=== PATIENT | male | born 1980 | race Two or more races ===

== ENCOUNTER 2024-04-05 22:41 | Observation (INO) | payer MEDICAID, SELFPAY ==
--- NOTE | 2024-04-05 22:47 | EDNOTE_ITS ---
Neuro Symptoms Deficit-RME/HPI General Chief Complaint: Neuro Symptoms/Deficit Stated Complaint: PAIN AND NUMBNESS TO RIGHT LEFT ARM AND LEG Time Seen by Provider: 04/05/24 22:47 Arrival date/time: 04/05/24 22:41 RME / HPI RME / HPI Narrative: This section includes all my notes and documentations, including HPI, PE, and ED course. Hector Nixon MD HPI: 44yo male with no significant past medical history presents to the ED for complaints of numbness to his arms and legs ~2130, 1 -2 hours ago. Patient reports also having pain to left his arm and leg, a headache, and left-sided facial numbness. He denies any history of similar symptoms. No speech or visual impairment. No loss of power in the arms or legs. No other complaints. ROS: All negative except as documented in HPI. Physical Exam: General: Alert and oriented. No acute distress when remaining still. Eyes: Conjunctivae and lids clear. PERRL. EOMI. ENT: No nasal congestion. Neck: Supple. Heart: RRR. Lungs: No respiratory distress. Good air movement. No rhonchi, wheezing, rales. Abdomen: Soft and nontender. Legs: No clubbing, cyanosis, edema. Skin: Warm and dry. Neuro: Alert and oriented X 3. Cranial nerves II to XII grossly normal. No p eripheral motor deficits. I reviewed all diagnostic test results. My interpretation of the EKG is sinus rhythm with no acute ST?T changes. My review of the head CT report is no acute findings. My review of the head/neck CTA report is no acute findings. Blood tests unremarkable. At this point, diagnoses include left sided numbness. Treatment here included ASA 325 mg. Patient remained stable. I discussed the case with our telehealth neurologist and hospitalist. About the presentation and exam and diagnostics and treatments here. And need of further care in the hospital. Will accept the patient. Hector Nixon MD Related Data Previous Rx's ?Medication ?Instructions ?Recorded hydrocodone 7.5 mg-acetaminophen 1 tab PO QID PRN pain #12 tabs 06/23/19 325 mg tablet cefuroxime axetil 500 mg tablet 500 mg PO Q12H #14 tab s 04/04/20 phenazopyridine 200 mg tablet 200 mg PO TID 6 doses #6 tabs 04/04/20 (Pyridium) Allergies Allergy/AdvReac Type Severity Reaction Status Date / Time No Known Allergies Allergy Verified 06/23/19 13:16 Review of Systems Review of Systems Systems Reviewed: All systems reviewed, normal except as documented Past Medical History Past Medical History NEUROLOGIC: Negative Neurological Disorders or Seizures CARDIAC: Negative Cardiac Disorders or Congestive Heart Failure RESPIRATORY: Negative Chronic Obstructive Pulmonary Disease (COPD) GASTROINTESTINAL: Negative Gastrointestinal Disorders GENITOURINARY: Negative Renal Disease MUSCULOSKELETAL: Negative Musculoskeletal Disorders ENDOCRINE: Negative Endocrine Disorders, Diabetes Mellitus Type 1 or Diabetes Mellitus Type 2 HEMATOLOGIC: Negative Blood Disorders OTHER HISTORY: Negative Autoimmune Disease, Blood Transfusions, Blood Transfusion Reaction or Anesthesia Reactions Surgical History SURGICAL: Positive Tonsillectomy Social History SMOKING STATUS: Current some day smoker ED Exam Narrative Physical exam: As noted in HPI. Course Quality Measures none Orders Category Date Time Status Admit to Inpatient Status Routine Admission 04/06/24 00:35 Active Patient Condition Routine Admission 04/06/24 00:35 Ordered Aspiration precautions NOW Care 04/06/24 00:36 Active Bedside Blood Glucose NOW Care 04/05/24 22:48 Active COVID-19 Screening Questionnaire NOW Care 04/06/24 00:00 Active Dark Room Attendant NOW Care 04/05/24 22:48 Active Continuous Pulse Oximetry NOW Care 04/05/24 22:48 Active Continuous Pulse Oximetry NOW Care 04/06/24 00:35 Active Decision to Admit X1 Care 04/06/24 00:00 Active EKG (ED ONLY) *Do not use* NOW Care 04/05/24 22:48 Active Head of Bed Elevation NOW Care 04/06/24 00:39 Active In and Out Catheter NEEDED Care 04/05/24 22:48 Active Insert IV NOW Care 04/05/24 22:48 Active Intake and Output QSHIFT Care 04/06/24 00:45 Ordered MRI Screening NOW Care 04/06/24 00:41 Active Miscellaneous Nursing Order NOW Care 04/06/24 00:35 Active NIH Stroke Scale now Care 04/05/24 22:48 Active NPO NOW Care 04/05/24 22:48 Active NPO NOW Care 04/06/24 00:36 Active Neuro Check Q4H Care 04/06/24 00:35 Active Notify provider NEEDED Care 04/06/24 00:35 Active Nurse Swallow Screen X1 Care 04/06/24 00:40 Active Nurse Swallow Screen x1 Care 04/05/24 22:48 Active Sequential Compression Device QSHIFT Care 04/06/24 00:35 Active Consult to Neurology / Tele-Neurology Routine Cons 04/05/24 22:48 Active Consult to Neurology / Tele-Neurology Routine Cons 04/06/24 00:38 Active Referral Physical Therapy Routine Cons 04/06/24 00:38 Active Referral Speech Therapy Routine Cons 04/06/24 00:38 Active Diet NPO (NOW) Diet 04/06/24 00:36 Active CA echo doppler complete Routine Exams 04/06/24 00:[address] angio stroke protocol Stat Exams 04/05/24 22:[address] stroke protocol Stat Exams 04/05/24 22:48 Completed EKG (ED Only) Stat Exams 04/05/24 22:48 Draft MR stroke protocol Routine Exams 04/06/24 Ordered Alcohol, Blood Medical Stat Lab 04/05/24 22:57 Completed B-Type Natriuretic Peptide Stat Lab 04/05/24 22:57 Completed CBC AM DRAW Lab 04/06/24 05:00 Ordered CBC AM DRAW Lab 04/07/24 05:00 Ordered CBC AM DRAW Lab 04/08/24 05:00 Ordered CBC AM DRAW Lab 04/09/24 05:00 Ordered CBC AM DRAW Lab 04/10/24 05:00 Ordered CBC AM DRAW Lab 04/11/24 05:00 Ordered CBC AM DRAW Lab 04/12/24 05:00 Ordered CBC Stat Lab 04/05/24 22:57 Completed Comprehensive Metabolic Panel AM DRAW Lab 04/06/24 05:00 Ordered Comprehensive Metabolic Panel AM DRAW Lab 04/07/24 05:00 Ordered Comprehensive Metabolic Panel AM DRAW Lab 04/08/24 05:00 Ordered Comprehensive Metabolic Panel AM DRAW Lab 04/09/24 05:00 Ordered Comprehensive Metabolic Panel AM DRAW Lab 04/10/24 05:00 Ordered Comprehensive Metabolic Panel AM DRAW Lab 04/11/24 05:00 Ordered Comprehensive Metabolic Panel AM DRAW Lab 04/12/24 05:00 Ordered Comprehensive Metabolic Panel Stat Lab 04/05/24 22:57 Completed Drug Screen,Urine Stat Lab 04/05/24 22:48 Ordered Lipid Panel AM DRAW Lab 04/06/24 05:00 Ordered Magnesium AM DRAW Lab 04/06/24 05:00 Ordered Magnesium AM DRAW Lab 04/07/24 05:00 Ordered Magnesium AM DRAW Lab 04/08/24 05:00 Ordered Magnesium AM DRAW Lab 04/09/24 05:00 Ordered Magnesium AM DRAW Lab 04/10/24 05:00 Ordered Magnesium Stat Lab 04/05/24 22:57 Completed Partial Thromboplastin Time AM DRAW Lab 04/07/24 05:00 Ordered Partial Thromboplastin Time AM DRAW Lab 04/08/24 05:00 Ordered Partial Thromboplastin Time AM DRAW Lab 04/09/24 05:00 Ordered Partial Thromboplastin Time Stat Lab 04/05/24 22:57 Completed Phosphorous AM DRAW Lab 04/07/24 05:00 Ordered Phosphorous AM DRAW Lab 04/08/24 05:00 Ordered Phosphorous AM DRAW Lab 04/09/24 05:00 Ordered Phosphorous AM DRAW Lab 04/10/24 05:00 Ordered Phosphorous AM DRAW Lab 04/11/24 05:00 Ordered Prothrombin Time with INR AM DRAW Lab 04/07/24 05:00 Ordered Prothrombin Time with INR AM DRAW Lab 04/08/24 05:00 Ordered Prothrombin Time with INR AM DRAW Lab 04/09/24 05:00 Ordered Prothrombin Time with INR Stat Lab 04/05/24 22:57 Completed Thyroid Stimulating Hormone AM DRAW Lab 04/06/24 05:00 Ordered Troponin I Stat Lab 04/05/24 22:57 Completed Urinalysis Stat Lab 04/05/24 22:48 Ordered Acetaminophen Tab [Tylenol Tab] Med 04/06/24 00:35 Active 650 mg PO Q6H PRN Aspirin Med 04/05/24 23:41 Discontinued 325 mg PO X1 ONE Aspirin [Ecotrin] Med 04/06/24 09:00 Active 81 mg PO QDAY Heparin Inj Med 04/06/24 09:00 Active 5,000 unit SC Q12H Labetalol IV [Trandate IV] Med 04/05/24 22:48 Active 10 mg IV Q15M PRN Ondansetron Inj [Zofran Inj] Med 04/05/24 22:48 Discontinued 4 mg IV Q4HR PRN Ondansetron Inj [Zofran Inj] Med 04/06/24 00:35 Active 4 mg IV Q6H PRN Pantoprazole [Protonix] Med 04/06/24 09:00 Active 40 mg PO QDAY Senna [Senokot] Med 04/06/24 00:35 Active 1 tab PO QDAY PRN Sodium Chloride 0.9% 1000 ml [Ns] 1,000 ml Med 04/05/24 23:00 Active IV X1 Code Status Routine Oth 04/06/24 00:35 Ordered Oxygen Delivery NOW RT 04/05/24 22:48 Active Oxygen Delivery PRN RT 04/06/24 00:35 Active Vital Signs Vital signs: Vital Signs Temperature 98.1 F 04/05/24 22:49 Pulse Rate 88 04/05/24 22:49 Respiratory Rate 18 04/05/24 22:49 Blood Pressure 143/99 H 04/05/24 22:49 Pulse Oximetry (%) 96 04/05/24 22:49 Oxygen Delivery Method Room Air 04/05/24 22:49 Neuro Symptoms / Deficit MDM Narrative MDM Narrative:: Scribe Attestation: 04/05/24 - Rosita Lay am scribing for and in the presence of Dr. Nixon. Patient data External records reviewed:: [facility] previous records (Per chart review, patient has no relevant previous ED visits.) Clinical information provided by:: patient Social determinants that could affect healthcare access:: none Patient has the following chronic illnesses:: none How is presenting disease/condition affected by chronic disease/condition?: no chronic disease Evaluation data The following diagnostics were reviewed and interpreted by me:: lab results, radiology exam(s) and EKG tracing(s) (My interpretation of the EKG is: Sinus rhythm (69 bpm) with nonspecific ST-T changes. Hector Nixon MD) Lab and/or radiology exams considered but not ordered:: none Interpretation Summary: Normal diagnostics Medications / Prescriptions Medications or Prescriptions considered but not ordered:: none Medication administrations:: Medication Administration History Acetaminophen (Acetaminophen 325 Mg Tablet) 650 mg PO Q6H PRN PRN Reason: Mild Pain (1-3 & Fever >101.5 Stop: 05/06/24 00:34 Aspirin (Aspirin Ec 81 Mg Tabec) 81 mg PO QDAY PORTILLO Stop: 05/06/24 08:59 Heparin Sodium (Porcine) (Heparin Sod Inj 5000 Unit/Ml Vial) 5,000 unit SC Q12H PORTILLO Stop: 04/20/24 08:59 Sodium Chloride (Ns) 1,000 mls @ 100 mls/hr IV X1 ONE Stop: 04/06/24 08:59 Last Admin: 04/06/24 01:00 Dose: 100 mls/hr Documented By: JE Labetalol HCl (Labetalol Inj 5 Mg/Ml Vial 20 Ml) 10 mg IV Q15M PRN PRN Reason: HYPER Ondansetron HCl (Ondansetron Inj 2 Mg/Ml Inj 2 Ml) 4 mg IV Q6H PRN; Protocol PRN Reason: NAUSEA OR VOMITING Stop: 05/06/24 00:34 Pantoprazole Sodium (Pantoprazole 40 Mg Tablet) 40 mg PO QDAY PORTILLO Stop: 05/06/24 08:59 Sennosides (Senna Tablet) 1 tab PO QDAY PRN; Protocol PRN Reason: constipation Stop: 05/06/24 00:34 Discontinued Medications Aspirin (Aspirin 325 Mg Tablet) 325 mg PO X1 ONE Stop: 04/05/24 23:42 Last Admin: 04/06/24 01:00 Dose: 325 mg Documented By: CLEVE Ondansetron HCl (Ondansetron Inj 2 Mg/Ml Inj 2 Ml) 4 mg IV Q4HR PRN PRN Reason: NAUSEA OR VOMITING Stop: 05/05/24 22:47 PSA Consultations Consultation(s) initiated? (list below): Yes Consultation #1 (Physician, Specialty, Details): Our telehealth neurologist recommended admission for further care, including MRI Diagnosis Neuro Differential Diagnosis: subarachnoid hemorrhage, peripheral neuropathy, cerebrovascular accident and transient cerebral ischemia Most likely diagnosis given after review of the tests above:: Left-sided numbness Admission Indicated Admission indicated?: indicated Explain why admission is indicated or not indicated:: Our telehealth neurologist who recommended admission for further care Admission Request Was there a request for admission?: Yes Admission Attestation Admission request attestation: Discussed case with Hospitalist service regarding admission. Discussed patients ED course, exam findings, labs, and radiology results. The Hospitalist [agrees] to accept the patient for admission. Disposition Plan Disposition Plan: Admit Critical Care Time Critical Care Time Critical Care Time: Yes Total Critical Care Time (min.): 40 Attestation: Due to a high probability of clinically significant, life threatening deterioration, the patient required my highest level of preparedness to intervene emergently and I personally spent this critical care time directly and personally managing the patient. This critical care time included obtaining a history; examining the patient; ordering and review of studies; arranging urgent treatment with development of a management plan; evaluation of patient's response to treatment; frequent reassessment; and discussions with family and other providers. It was exclusive of separately billable procedures and treating other patients and teaching time. Hector Nixon MD Discharge Plan Plan Patient Disposition: Admit Acute Care w/in Hospital Prescriptions/Referrals Prescriptions/Med Rec: No Action phenazopyridine [Pyridium] 200 mg tablet 200 mg PO TID Qty: 6 0RF cefuroxime axetil 500 mg tablet 500 mg PO Q12H Qty: 14 0RF hydrocodone-acetaminophen 7.5-325 mg tablet 1 tab PO QID MDD 4 tabs PRN (Reason: pain) Qty: 12 0RF Problem List Clinical Impression: Stroke-like symptoms Patient/Caregiver Discharge Instructions Print Language: Polish Stand Alone Forms: [place] Award Info., Patient Portal Info Letter
--- NOTE | 2024-04-05 22:48 | XR_ITS ---
Examination: CT brain head without contrast. 2-D sagittal coronal reconstructions Date and time of exam:April 05, 2024 1050 hrs. Indications: Stroke alert, onset focal neurologic deficit today numbness in the extremities CTDI: vol (mGy):50.9 DLP: (mGycm):1004 Technique: Multiple CT axial sections of the brain have been obtained, 5 mm slice thickness. Contrast has not been administered. 2-D sagittal, coronal reconstructions have been obtained Low dose protocols were performed. One or more of the following dose reduction techniques were used; automated exposure control, adjustment of the mA and/or KV according to patient size, use of iterative reconstruction technique. Findings: No significant ventricular enlargement. Intra-axial or extra-axial hemorrhage density is not seen. No mass effect or midline shift Basal cisterns are not remarkable. Fourth ventricle is midline. Cranial vault intact. Impression: Negative for acute hemorrhage, mass effect or midline shift
--- NOTE | 2024-04-05 22:48 | XR_ITS ---
Examination: CTA carotids with intravenous contrast CTA brain, head with intravenous contrast. 2-D sagittal, coronal reconstructions. 3-D reconstructions. Exam date and time: April 05, 2024 1101 hrs. Indications: Stroke alert, onset numbness in the extremities today CTDI: vol (mGy) 10.9 DLP: (mGycm) 428 Technique: Multiple CTA axial brain, head carotid images post intravenous contrast injection 75 cc, [id number]. 2-D sagittal, coronal reconstructions. 3-D reconstructions, 3-D post processing including vascular maximum intensity projection images. Low dose protocols were performed. One or more of the following dose reduction techniques were used; automated exposure control, adjustment of the mA and/or KV according to patient size, use of iterative reconstruction technique. Findings: No common carotid carotid bifurcation or significant internal carotid artery stenoses Mildly dominant left vertebral artery with no critical stenoses No cerebral large vessel arterial occlusions, thrombus, dissection or cerebral aneurysm Impression: No significant neck arterial stenoses No cerebral large vessel arterial occlusions or thrombus
--- NOTE | 2024-04-05 22:48 | EKG_ITS ---
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
[2024-04-05 22:49] VITALS: BP 143/99; PULSE 88; RESP 18; TEMP 36.7; O2SAT 96
--- NOTE | 2024-04-05 22:54 | PC.NURSE ---
stroke consult Case # [id number]?
[2024-04-05 23:27] LABS: Basophils # (Auto) 0.1 Thou/mm3 (0.0-0.2); Basophils % (Auto) 1 % (0-2.5); Eosinophils # (Auto) 0.1 Thou/mm3 (0.0-0.5); Eosinophils % (Auto) 1 % (0-10); Hematocrit 44.9 % (41.0-53.0); Hemoglobin 15.5 g/dL (13.5-16.0); Immature Granulocytes % (Auto) 0 % (0-0); Immature Granulocytes Auto 0.03 Thou/mm3 (0.00-0.00); Lymphocytes # (Auto) 3.8 Thou/mm3 (1.0-4.8); Lymphocytes % (Auto) 44 % (10-50); Mean Corpuscular HGB Conc 34.5 g/dl (31.0-37.0); Mean Corpuscular Hemoglobin 28.8 pg (25.0-35.0); Mean Corpuscular Volume 83 fL (80-100); Monocytes # (Auto) 0.9 Thou/mm3 (0.0-0.8); Monocytes % (Auto) 10 % (0-12); Neutrophils # (Auto) 3.9 Thou/mm3 (1.8-7.7); Neutrophils % (Auto) 45 % (37-80); Nucleated Red Blood Cell % 0 /100 WBC (0); Platelet Count 276 Thou/mm3 (140-440); RDW Standard Deviation 39.8 fL (35.1-43.9); Red Blood Count 5.39 Miln/mm3 (4.50-5.90); White Blood Count 8.8 Thou/mm3 (3.8-10.6)
[2024-04-05 23:31] LABS: Alanine Aminotransferase 30 U/L (10-49); Albumin, Serum 4.8 gm/dL (3.5-5.0); Albumin/Globulin Ratio 1.5 (1.2-2.2); Alcohol, Blood Medical < 3.0 mg/dL (0-10.0); Alkaline Phosphatase 75 U/L (46-116); Anion Gap 6 (7-16); Aspartate Amino Transferase 29 U/L (0-34); BUN/Creatinine Ratio 11 Ratio (12-20); Bilirubin,Total 0.6 mg/dL (0.3-1.2); Blood Urea Nitrogen 11 mg/dL (9-23); Carbon Dioxide 26.6 mMol/L (20.0-31.0); Chloride 108 mMol/L (98-107); Globulin 3.1 gm/dL (2.3-3.5); Glucose 87 mg/dL (74-106); Magnesium 2.2 mg/dL (1.6-2.6); Osmolality,Calculated 279 (275-295); Potassium 3.8 mMol/L (3.4-5.1); Sodium 141 mMol/L (136-145); Total Protein 7.9 gm/dL (5.7-8.2); Troponin I < 0.002 ng/mL (0.0-0.045); eGFR > 60 See Note
[2024-04-05 23:35] LABS: Partial Thromboplastin Time 29.8 Seconds (22.0-36.0); Prothrombin Time 11.1 Seconds (9.0-12.2)
[2024-04-05 23:56] LABS: B-Type Natriuretic Peptide < 20 pg/mL (0-100)
[2024-04-06] VITALS (13 sets, daily range): BP systolic 88–141; BP diastolic 54–99; PULSE 68–90; RESP 5–95; TEMP 36.6–36.8; O2SAT 88–98; BMI 29.8
--- NOTE | 2024-04-06 | XR_ITS ---
Examinations: MRI Brain without intravenous contrast. MRA brain without intravenous contrast. MRA carotids without intravenous contrast 3-D vascular reconstructions Date and time of exam: April 06, 2024 0852 hours INDICATIONS: Left-sided body numbness and weakness today Technique: Multiple axial and sagittal images of the brain have been obtained MRA brain carotid images without contrast obtained, including 3-D postprocessing, vascular maximum intensity projection images Findings: Sellaturc[place] is not enlarged. The optic chiasm and infundibular stalk are not remarkable. Prepontine and interpeduncular cisterns are not enlarged. No localized enlargement of the medulla or asia. Fourth ventricle and cerebellar tonsils normal in position. Subacute hemorrhage is not seen. Fourth ventricle is midline. Mass in the cerebellopontine angle region is not evident. 7th and 8th nerve complexes exhibits symmetry. Globes are symmetrical with no retro-orbital mass. Increased white matter signal not seen Diffusion-weighted images demonstrate no focus of restricted diffusion Mass-effect upon the ventricular system is not identified. MRA carotid images no significant carotid stenoses. MRA brain images no large vessel occlusions Impression: Negative for acute hemorrhage mass effect or midline shift No acute infarct No MR findings diagnostic for demyelinating disease
--- NOTE | 2024-04-06 00:22 | PD.TNEURO ---
Tele Neuro Consultation Consultation Date 04/06/24 Most Recent Vital Signs Last Vital Signs Temp 98.1 F 04/05/24 22:49 Pulse 88 04/05/24 22:49 Resp 18 04/05/24 22:49 BP 143/99 H 04/05/24 22:49 Pulse Ox 96 04/05/24 22:49 O2 Del Method Room Air 04/05/24 22:49 Laboratory-Coagulation Panel PT 11.1 Seconds (9.0-12.2) 04/05/24 22:57 INR 1.0 (0.9-1.3) 04/05/24 22:57 APTT 29.8 Seconds (22.0-36.0) 04/05/24 22:57 Consultation Narrative [facility] Tele[facility]urology Consult [facility] Patient Name:???Angela Astudillo Date of :???1980 Identification Number:??? Date of Service:???04/05/2024 22:53:48 Diagnosis:?I63.89 - Cerebrovascular accident (CVA) due to other mechanism ([facility]) Impression: ?44 yo man presenting for left sided numbness. Certainly this could be due to a stroke however he looked too good with no true disabling deficits to warrant use of thrombolytics. I recommend a brain MRI. For now, start aspirin. This may also be due to a stress reaction as he got angry right before the symptoms began. ? ?Please have neurology follow. Our recommendations are outlined below. Recommendations: ? Stroke/Telemetry Floor ? Neuro Checks ? Bedside Swallow Eval ? DVT Prophylaxis ? IV Fluids, Normal Saline ? Head of Bed 30 Degrees ? Euglycemia and Avoid Hyperthermia (PRN Acetaminophen) ? Initiate or continue Aspirin 81 MG daily Sign Out: ? Discussed with Emergency Department Provider Advanced Imaging: CTA Head and Neck Completed. LVO:No Patient in not a candidate for MONE Metrics: Last Known Well: 04/05/2024 21:00:00 Dispatch Time: 04/05/2024 22:53:48 Arrival Time: 04/05/2024 22:41:00 Initial Response Time: 04/05/2024 23:03:00Symptoms: left numbness. Initial patient interaction: 04/05/2024 23:08:16 NIHSS Assessment Completed: 04/05/2024 23:22:29Patient is not a candidate for Thrombolytic. Thrombolytic Medical Decision: 04/05/2024 23:22:31Patient was not deemed candidate for Thrombolytic because of following reasons: Stroke severity too mild (non-disabling) . CT head showed no acute hemorrhage or acute core infarct. Primary Provider Notified of Diagnostic Impression and Management Plan on: 04/06/2024 00:00:00 History of Present Illness:Patient is a 44 year old Male. Patient was brought by private transportation with symptoms of left numbness. This is a 44 yo man who presents for evaluation of numbness. He said at first it was bilateral but then shifted over to the left side. Currently, he feels a numbness/tingling in the left face and arm. He denies any catarina weakness. Denies headache or difficulty walking. On exam, he does say that the left face has some decreased sensation to touch but otherwise, he appears nonfocal. Please note I was not able to get nursing in to help me examine him so I did the best I could with him helping do some parts of the exam himself. Imaging was negative for any acute pathology. Past Medical History: Other PMH:? denies Medications: No Anticoagulant use? No Antiplatelet use Reviewed EMR for current medications Allergies:? NKDA Social History: Smoking: Yes Alcohol Use: Yes Family History: There is no family history of premature cerebrovascular disease pertinent to this consultation ROS : 14 Points Review of Systems was performed and was negative except mentioned in HPI. Past Surgical History: There Is No Surgical History Contributory To Today?s Visit Examination: BP(143/99),?Pulse(88), 1A: Level of Consciousness - Alert; keenly responsive?+ 0 1B: Ask Month and Age - Both Questions Right?+ 0 1C: Blink Eyes & Squeeze Hands - Performs Both Tasks?+ 0 2: Test Horizontal Extraocular Movements - Normal?+ 0 3: Test Visual Nunez - No Visual Loss?+ 0 4: Test Facial Palsy (Use Grimace if Obtunded) - Normal symmetry?+ 0 5A: Test Left Arm Motor Drift - No Drift for 10 Seconds?+ 0 5B: Test Right Arm Motor Drift - No Drift for 10 Seconds?+ 0 6A: Test Left Leg Motor Drift - No Drift for 5 Seconds?+ 0 6B: Test Right Leg Motor Drift - No Drift for 5 Seconds?+ 0 7: Test Limb Ataxia (FNF/Heel-Chakraborty) - No Ataxia?+ 0 8: Test Sensation - Mild-Moderate Loss: Less Sharp/More Dull?+ 1 9: Test Language/Aphasia - Normal; No aphasia?+ 0 10: Test Dysarthria - Normal?+ 0 11: Test Extinction/Inattention - No abnormality?+ 0 NIHSS Score:?1 NIHSS Free Text :?mild sensation loss in the left face Pre-Morbid Modified Antonette Scale:0 Points = No symptoms at all Spoke with :?Dr. Nixon This consult was conducted in real time using interactive audio and video technology. Patient was informed of the technology being used for this visit and agreed to proceed. Patient located in hospital and provider located at home/office setting. Patient is being evaluated for possible acute neurologic impairment and high probability of imminent or life-threatening deterioration. I spent total of 35 minutes providing care to this patient, including time for face to face visit via telemedicine, review of medical records, imaging studies and discussion of findings with providers, the patient and/or family. Dr Arpit Watts [facility] For Inpatient follow-up with [facility] physician please call [facility] at . As we are not an outpatient service for any post hospital discharge needs please contact the hospital for assistance. If you have any questions for the [facility] physicians or need to reconsult for clinical or diagnostic changes please contact us via [facility] at .
[2024-04-06] MEDS: Aspirin 325 MG TABLET PO (01:00)
[2024-04-06] MEDS: SODIUM CHLORIDE 0.9% 1000 ML 1,000 ML 100 ML IV (01:00)
--- NOTE | 2024-04-06 01:08 | PD.RESHP ---
Documentation for date of: 04/06/24 [facility] History of Present Illness Chief complaint: Left-sided weakness History of present illness: Mr. Astudillo is a 44-year-old male with no significant past medical history who presented to [facility] ([facility] emergency department from home on 04/06/2024 with left-sided numbness. Patient reported that his numbness was bilateral at first but then shifted to the left side. Currently reported feeling a numbness tingling on the left forearm. He denies any catarina weakness, headache or difficulty walking. Patient did report that he was significantly stressed and angry before his symptoms began. Stroke alert was called in the ED. Teleneuro evaluated the patient, NIHSS score 1, per teleneuro recommended admission for stroke workup. Patient does report that he follows with [facility] outpatient at times, reported that he was once told that his cholesterol was high, otherwise denies any other medical problems. Patient currently denies any chest pain or numbness. ED Course: ED Vitals: On presentation BP 143/9 9, P88, RR 18, temp 98.1, O2 sat 96 on room air ED Labs: ED labs significant for chloride 108. Troponins were negative ED Imaging: CT scan of head negative, CTA head and neck negative, EKG in ED shows sinus rhythm no ST elevation or depression noted, QTc 434 ED Treatment:Patient was given aspirin 325 p.o. x 1 and was started on maintenance fluids NS in ED Review of Systems Review of Systems Narrative Review of Systems: ROS: -CONSTITUTIONAL: Denies weight loss, fever and chills. -HEENT: Denies changes in vision and hearing. -RESPIRATORY: Denies SOB and cough. -CV: Denies palpitations and Chest Pain. -GI: Denies abdominal pain, nausea, vomiting,constipation and diarrhea. -: Denies dysuria and urinary frequency. -MSK: Denies myalgia and joint pain. -SKIN: Denies rash and pruritus. -NEUROLOGICAL: Denies headache and syncope. Positive for left forearm numbness. -PSYCHIATRIC: Denies recent changes in mood. Denies anxiety and depression. 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 Conversational and non-toxic appearing. HEENT: Normocephalic, atraumatic, mucous membranes moist. Heart: Regular rate and rhythm, no murmurs. Lungs: Clear to auscultation with no wheezing or crackles. Abdomen: Soft, nondistended, nontender, positive bowel sounds. ?No guarding or rebound tenderness. Neurologic: Alert and oriented x3, no gross neurological deficit, and patient able to move all 4 extremities. Extremities: No edema. Skin: No rash or ecchymoses. Results: Labs 04/05/24 22:57 04/05/24 22:57 Labs: Short CBC 04/05/24 Range/Units 22:57 WBC 8.8 (3.8-10.6) Thou/mm3 Hgb 15.5 (13.5-16.0) g/dL Hct 44.9 (41.0-53.0) % Plt Count 276 (140-440) Thou/mm3 BMP 04/05/24 22:57 Sodium 141 Potassium 3.8 Chloride 108 H Carbon Dioxide 26.6 BUN 11 Creatinine 1.0 Glucose 87 Calcium 10.0 Cardiac Enzymes 04/05/24 Range/Units 22:57 Troponin I < 0.002 (0.0-0.045) ng/mL Liver Function 04/05/24 Range/Units 22:57 Total Bilirubin 0.6 (0.3-1.2) mg/dL AST 29 (0-34) U/L ALT 30 (10-49) U/L Alkaline Phosphatase 75 (46-116) U/L Albumin 4.8 (3.5-5.0) gm/dL Quality Measures Quality Measures none Medications Home Medications and Allergies Allergies Allergy/AdvReac Type Severity Reaction Status Date / Time No Known Allergies Allergy Verified 06/23/19 13:16 Visit Medications Acetaminophen (Acetaminophen 325 Mg Tablet) 650 mg PO Q6H PRN PRN Reason: Mild Pain (1-3 & Fever >101.5 Stop: 05/06/24 00:34 Aspirin (Aspirin Ec 81 Mg Tabec) 81 mg PO QDAY PORTILLO Stop: 05/06/24 08:59 Heparin Sodium (Porcine) (Heparin Sod Inj 5000 Unit/Ml Vial) 5,000 unit SC Q12H PORTILLO Stop: 04/20/24 08:59 Sodium Chloride (Ns) 1,000 mls @ 100 mls/hr IV X1 ONE Stop: 04/06/24 08:59 Last Admin: 04/06/24 01:00 Dose: 100 mls/hr Labetalol HCl (Labetalol Inj 5 Mg/Ml Vial 20 Ml) 10 mg IV Q15M PRN PRN Reason: HYPER Ondansetron HCl (Ondansetron Inj 2 Mg/Ml Inj 2 Ml) 4 mg IV Q6H PRN; Protocol PRN Reason: NAUSEA OR VOMITING Stop: 05/06/24 00:34 Pantoprazole Sodium (Pantoprazole 40 Mg Tablet) 40 mg PO QDAY PORTILLO Stop: 05/06/24 08:59 Sennosides (Senna Tablet) 1 tab PO QDAY PRN; Protocol PRN Reason: constipation Stop: 05/06/24 00:34 Discontinued Medications Aspirin (Aspirin 325 Mg Tablet) 325 mg PO X1 ONE Stop: 04/05/24 23:42 Last Admin: 04/06/24 01:00 Dose: 325 mg Ondansetron HCl (Ondansetron Inj 2 Mg/Ml Inj 2 Ml) 4 mg IV Q4HR PRN PRN Reason: NAUSEA OR VOMITING Stop: 05/05/24 22:47 Assessment & Plan Plan Assessment and Plan: Summary: Mr. Astudillo is a 44-year-old male with no significant past medical history who presented to [facility] emergency department from home on 04/06/2024 with left-sided numbness. Teleneuro consult called in ED, patient admitted for CVA workup, high suspicion of TIA. #CVA workup #TIA versus stroke #Left arm numbness Reported that his numbness was bilateral at first but then shifted to the left side. Currently reported feeling a numbness tingling on the left forearm. He denies any catarina weakness, headache or difficulty walking. Patient did report that he was significantly stressed and angry before his symptoms began. Stroke alert was called in the ED. Teleneuro evaluated the patient, NIHSS score 1, per teleneuro recommended admission for stroke workup. CT scan of head negative, CTA head and neck negative, was given loading dose aspirin in ED. Plan: -Started on aspirin 81 mg daily -Atorvastatin 40 mg daily -Consulted neurology, appreciate recommendations -Ordered MR stroke protocol -Ordered echo with bubble study -Elevate head of bed, keep patient euthermic, euglycemic -N.p.o., aspiration precaution, bedside swallow screen -Neurocheck every 4 hours, permissive hypertension for 24 hours -Referral to physical therapy -Referral to speech therapy DVT prophylaxis: Heparin every 12 hours GI prophylaxis: P.o. Protonix Diet: N.p.o., pending swallow eval Lines: Peripheral IV Code status: Full code Case discussed with Attending Dr. Davey. Carlos Ramos PGY1 Disclaimer: This note was dictated by speech recognition. Minor errors in self pay collector may be present due to voice recognition software. Attending Provider Attestation/Addendum 44-year-old male patient with no significant past medical history was admitted for acute onset of left-sided weakness and numbness. CT scan of the brain CT scan angiography of head and neck were unremarkable. Patient is admitted for stroke workup.
[2024-04-06 02:09] LABS: Collection Type, Urine Clean Catch; Squamous Epithelial Cell,Urine 0 /hpf (0-5)
[2024-04-06 02:17] LABS: RBC,Urine 1 /hpf (0-3); WBC,Urine 1 /hpf (0-5)
[2024-04-06 02:18] LABS: Amphetamine/Methamp Scrn,U Negative (Negative); Barbiturate Screen,Urine Negative (Negative); Benzodiazepines Screen,Urine Negative (Negative); Benzoylecgonine Screen, Ur Negative (Negative); Fentanyl Screen,Urine Negative (Negative); Opiate Screen,Urine Negative (Negative); THC Screen,Urine Negative (Negative)
[2024-04-06 02:26] LABS: Bilirubin,Urine Negative (Negative); Blood,Urine Negative (Negative); Clarity,Urine Clear (Clear/Hazy); Color,Urine Red (Lt Yel-Yel); Glucose, Urine Negative (Negative); Ketones,Urine Negative (Negative); Leukocyte Esterase,Urine 2+ (Negative); Nitrite,Urine Negative (Negative); Protein,Urine 1+ (Neg - Trace); Specific Gravity,Urine 1.025 (1.001-1.035); Urobilinogen,Urine 0.2 mg/dL (0.0-1.0)
[2024-04-06 05:22] LABS: Basophils % (Auto) 1 % (0-2.5); Eosinophils # (Auto) 0.1 Thou/mm3 (0.0-0.5); Eosinophils % (Auto) 2 % (0-10); Hematocrit 42.3 % (41.0-53.0); Hemoglobin 14.3 g/dL (13.5-16.0); Immature Granulocytes % (Auto) 0 % (0-0); Immature Granulocytes Auto 0.03 Thou/mm3 (0.00-0.00); Lymphocytes # (Auto) 3.5 Thou/mm3 (1.0-4.8); Lymphocytes % (Auto) 49 % (10-50); Mean Corpuscular HGB Conc 33.8 g/dl (31.0-37.0); Mean Corpuscular Hemoglobin 28.5 pg (25.0-35.0); Mean Corpuscular Volume 84 fL (80-100); Monocytes # (Auto) 0.8 Thou/mm3 (0.0-0.8); Monocytes % (Auto) 11 % (0-12); Neutrophils # (Auto) 2.6 Thou/mm3 (1.8-7.7); Neutrophils % (Auto) 37 % (37-80); Nucleated Red Blood Cell % 0 /100 WBC (0); Platelet Count 211 Thou/mm3 (140-440); RDW Standard Deviation 41.3 fL (35.1-43.9); Red Blood Count 5.01 Miln/mm3 (4.50-5.90); White Blood Count 7.1 Thou/mm3 (3.8-10.6)
[2024-04-06 05:48] LABS: Glucose Estimated Average 114 mg/dL (80-131); Hemoglobin A1C 5.6 % Hgb (4.8-6.0)
[2024-04-06 06:06] LABS: Alanine Aminotransferase 27 U/L (10-49); Albumin/Globulin Ratio 1.5 (1.2-2.2); Alkaline Phosphatase 65 U/L (46-116); Anion Gap 5 (7-16); Aspartate Amino Transferase 25 U/L (0-34); BUN/Creatinine Ratio 12 Ratio (12-20); Bilirubin,Total 0.5 mg/dL (0.3-1.2); Blood Urea Nitrogen 13 mg/dL (9-23); Calcium 9.2 mg/dL (8.3-10.6); Calcium (Corrected) 9.2 mg/dL (8.5-10.1); Carbon Dioxide 27.6 mMol/L (20.0-31.0); Cardiac Risk Estimate 5.1 RATIO (4.0-6.7); Chloride 108 mMol/L (98-107); Cholesterol 157 mg/dL (132-200); Creatinine (Component) 1.1 mg/dL (0.6-1.3); Estimated Creatinine Clearance 105.9 mL/min (>60); Free T4 (Free Thyroxine) 1.17 ng/dL (0.89-1.76); Globulin 2.7 gm/dL (2.3-3.5); Glucose 86 mg/dL (74-106); HDL Cholesterol 31 mg/dL (40-60); LDL Cholesterol,Calculated 81 mg/dL (0-130); Magnesium 2.4 mg/dL (1.6-2.6); Osmolality,Calculated 280 (275-295); Potassium 3.7 mMol/L (3.4-5.1); Sodium 141 mMol/L (136-145); Thyroid Stimulating Hormone 1.81 uIU/mL (0.55-4.78); Total Protein 6.7 gm/dL (5.7-8.2); Triglycerides 223 mg/dL (30-150); eGFR > 60 See Note
--- NOTE | 2024-04-06 08:55 | PC.NURSE ---
Pt was taken to MRI at this time
--- NOTE | 2024-04-06 10:40 | PC.NURSE ---
This typewriter ribbon winder went to administer am meds to pt and pt refused all home meds and states he wants to talk to a doctor not a nurse MD made aware
--- NOTE | 2024-04-06 17:49 | ESDS_ITS ---
<Statement entered by Liz Reyna MD - 04/19/24 08:00> I reviewed above note and agree with findings and plans. I have also personally examined the patient with medicine team and went over assessment and plan with medical team including international project manager and resident physician. Planned Discharge Date 04/06/24 DS: Providers Provider Date of admission: 04/06/24 00:35 Primary care physician: Virgilio Blake MD Admitting Provider: Sameer Davey MD Attending Provider on Admission: Lzi Reyna MD Consults: 04/05/24 22:48 Consult to Neurology / Tele-Neurology Routine Comment: Consulting Provider: [facility] 04/06/24 00:38 Consult to Neurology / Tele-Neurology Routine Comment: CVA Workup Consulting Provider: Yasmani Marcelino Referral Physical Therapy Routine Comment: CVA Workup Physician Instructions: Attending Provider on DC: Liz Reyna MD Discharging Provider: Liz Reyna MD DS: Diagnosis Problem List Completed Was Problem List Reviewed/Reconciled?: Yes Hospital Course Hospital Course Hospital course: Angela is a 44-year-old male with no significant past medical history who presented to [facility] emergency department from home on 04/06/2024 who was admitted for acute stress reaction that had resulted in some L UE weakness including his forearm and was bilat at some point. He arrived with BP 143/99, P88, RR 18, temp 98.1, O2 sat 96 on room air. ED labs were significant for chloride 108. Troponins were negative. CT scan of head negative, CTA head and neck negative, EKG showed sinus rhythm no ST elevation or depression noted, QTc 434. Teleneuro stroke protocol was activated and had determined a NIHSS score of 1. Patient was given aspirin 325 p.o. x 1 and was started on maintenance fluids NS in ED. Medicine was consulted and pt was admitted to floors. Pt's symptoms had resolved. Pt had reported that he had dealt with something stressful prior to his episode of weakness that has resolved now. MRA brain show no acute stroke, hemorrhage, mass effect, acute infarct or mass effect. Pt was then discharged and recommended to follow up with his PCP within a week. #Acute stress reaction #CVA, ruled out #L arm numbness, resolved Discharge instructions: Follow-up with PCP within a week Take medicines as prescribed Return to ER if symptoms return or worsen Patient seen and care discussed with my senior resident, Dr. Robles , and my attending physician, Dr. Axel Rubalcava, PGY-1 Time Spent with Patient Time attestation: Total time spent providing and/or coordinating discharge services: Time spent: Greater than 30 minutes Exam Vital Signs Temp Pulse Resp BP Pulse Ox O2 Del Method 98.2 F 83 13 124/85 H 97 Room Air 04/06/24 10:04/06/24 10:04/06/24 10:04/06/24 10:04/06/24 10:04/06/24 10:09 Narrative Exam General: Awake and in no acute distress. Conversational and non-toxic appearing. HEENT: Normocephalic, atraumatic, mucous membranes moist. Heart: Regular rate and rhythm, no murmurs. Lungs: Clear to auscultation with no wheezing or crackles. Abdomen: Soft, nondistended, nontender, positive bowel sounds. ?No guarding or rebound tenderness. Neurologic: Alert and oriented x3, no gross neurological deficit, and patient able to move all 4 extremities. Extremities: No edema. Skin: No rash or ecchymoses. Discharge Plan Plan Patient Disposition: HOME (Self Care) Care Plan Goals: Follow-up with PCP within a week Take medicines as prescribed Return to ER if symptoms return or worsen Prescriptions/Referrals Prescriptions/Med Rec: No Action phenazopyridine [Pyridium] 200 mg tablet 200 mg PO TID Qty: 6 0RF cefuroxime axetil 500 mg tablet 500 mg PO Q12H Qty: 14 0RF hydrocodone-acetaminophen 7.5-325 mg tablet 1 tab PO QID MDD 4 tabs PRN (Reason: pain) Qty: 12 0RF Referrals: Virgilio Blake MD [Primary Care Provider] - Patient/Caregiver Discharge Instructions Print Language: Swazi Stand Alone Forms: [place] Award Info., Patient Portal Info Letter, Work/Release Restrictions Discharge Order Discharge Orders: Discharge (Routine); Ordered 04/06/24 Ordered By: Estiven Rubalcava Quality Discharge Quality Measures VTE prophylaxis (Aspirin 325 )
== END 2024-04-06 12:34 | disposition home or self-care (01) ==
LOC: SERX 04-06 01:07 → SERHOLD 04-06 05:56
PROVIDERS: Admitting Provider Internal Medicine; Emergency Provider Emergency Medicine; PCP Family Medicine; Visit Provider Internal Medicine
DX: F43.0 Acute stress reaction (principal); R20.0 Anesthesia of skin; I10 Essential (primary) hypertension; I63.89 Other cerebral infarction; F17.200 Nicotine dependence, unspecified, uncomplicated; E78.00 Pure hypercholesterolemia, unspecified; Z01.810 Encounter for preprocedural cardiovascular examination
CPT/HCPCS: 36415; 70450; 70496; 70498; 70544; 80053; 80061; 80307; 80320; 81001; 83036; 83735; 83880; 84100; 84439; 84443; 84484; 85025; 85610; 85730; 93005; 96372; 99291; A4649; G0378; J7030; Q9967; A9270; G0480